=== PATIENT | female | born 1960 | race Caucasian/White ===

== ENCOUNTER → 2020-07-01 | Outpatient (CLI) | payer OTHER ==
[~2020-07-01] MED LIST: CITALOPRAM HBR40 MG PO; COUMADIN2 MG PO; LEVOTHYROXINE50 MCG PO; LOSARTAN-HCTZ1 EACH PO; PRAVASTATIN SOD10 MG PO
--- NOTE | 2020-07-01 15:25 | Diagnostic Imaging Report ---
EXAM: CT Chest WITHOUT intravenous contrast 07/01/2020 1:41 PM INDICATION: ^[id number] ^[id number] ^RIGHT LOWER LUNG PULMONARY NODULE COMPARISON: None TECHNIQUE: Chest was scanned utilizing a multidetector helical scanner from the lung apex through the level of the adrenal glands without administration of IV contrast. Coronal and sagittal reformations were obtained. Routine protocol was performed. IV CONTRAST: None RADIATION DOSE: Total DLP: 529 mGy*cm. Dose modulation, iterative reconstruction, and/or weight based adjustment of the mA/kV was utilized to reduce the radiation dose to as low as reasonably achievable. COMPLICATIONS: None FINDINGS: LINES/ TUBES: None. LUNGS AND AIRWAYS: Large airways are patent. There is a 7 mm right lower lobe subpleural pulmonary nodule (image #[id number]). There is a 5 mm superior left lower lobe subpleural pulmonary nodule (image #[id number]). No suspicious consolidation or infectious infiltrate. PLEURA: The pleural spaces are clear. HEART AND MEDIASTINUM: The thyroid gland is normal. No mediastinal, hilar or axillary lymphadenopathy. The heart is normal in size. There is no pericardial effusion. Coronary artery calcification is noted. Large hiatal hernia is noted with the majority of the stomach contained within it. UPPER ABDOMEN: Otherwise unremarkable. BONES: No acute osseous abnormality. Mild to moderate multilevel degenerative changes of the visualized spine are noted. No suspicious destructive lesion is identified. SOFT TISSUES: Unremarkable. IMPRESSION: 1. There are 7 mm subpleural right lower lobe and 5 mm subpleural left lower lobe pulmonary nodules. Recommendations provided below. Consider obtaining prior outside hospital imaging. 2. Large hiatal hernia containing the majority of the stomach. 3. Coronary artery calcifications are noted. Multiple Solid pulmonary nodules 6-8 mm Patients at low risk for lung cancer: CT at 3-6 months, then consider CT at 18-24 months. Patients at high risk for lung cancer: CT at 3-6 months, then CT at 18-24 months. Signed by: Manny Carranza MD on 07/01/2020 3:21 PM
== END ==
LOC: CT 13:11
PROVIDERS: ATTEND Family Medicine
DX: R91.1 Solitary pulmonary nodule (principal)
CPT/HCPCS: 71250